=== PATIENT | female | born 1980 | race Two or more races ===

== ENCOUNTER 2019-03-07 19:07 | Emergency (ER) | payer MEDICAID ==
[~2019-03-07] VITALS: Ht 160 cm; Wt 86.2 kg
[2019-03-07 19:17] VITALS: BP 139/83
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
--- NOTE | 2019-03-07 19:25 | NUR ---
ED Nurse Note: pt taken to CT
--- NOTE | 2019-03-07 19:39 | NUR ---
ED Nurse Note: pt returned from CT
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
[2019-03-07] MEDS ORDERED: IBUPROFEN600 MG ORAL (20:01)
[2019-03-07] MEDS ORDERED: ZOFRAN4 M1 ORAL (20:01)
--- NOTE | 2019-03-07 20:02 | Diagnostic Imaging Report ---
Indications: Trauma, pain Technique: Spiral images obtained through the facial bones. No IV contrast utilized. Multiplanar reconstructions were generated.Total dose length product 500 mGycm. CTDIvol(s) 24 mGy. Dose reduction achieved using automated exposure control Comparison: none Findings: No evidence of acute fracture. No worrisome sinus opacification. There is some mucosal thickening of the right maxillary sinus. The dentition is intact. The optic globes and retroseptal orbits are intact. The facial soft tissues are unremarkable. Impression: No definite acute bony or soft tissue trauma Minimal right maxillary sinus disease incidentally noted This agrees with the preliminary interpretation provided overnight by [facility]. The CT scanner at [facility] is accredited by the [employer] and the scans are performed using protocols designed to limit radiation exposure to as low as reasonably achievable to attain images of sufficient resolution adequate for diagnostic evaluation.
[2019-03-07 20:05] VITALS: BP 132/83
--- NOTE | 2019-03-07 20:05 | NUR ---
ER DISCHARGE NOTE: Patient is cleared to be discharged per ERMD, pt is aox4, on room air, with stable vital signs. pt was given dc and prescription instructions, pt was able to verbalize understanding, pt id band removed. pt is able to ambulate with steady gait. pt took all belongings.
== END 2019-03-07 20:05 | disposition home or self-care (01) ==
LOC: EMR 19:58
DX: S00.93XA Contusion of unspecified part of head, initial encounter (principal); R11.0 Nausea; R68.84 Jaw pain; Y09 Assault by unspecified means
CPT/HCPCS: 70450; 70486; Z7502; 99284